=== PATIENT | male | born 1995 | race Caucasian/White ===

== ENCOUNTER 2019-12-08 19:59 | Emergency (ER) | payer BC ==
[~2019-12-08] VITALS: Ht 193 cm; Wt 102.1 kg
--- NOTE | ~2019-12-08 | EKG ---
[facility] [address] [place] [address] ELECTROCARDIOGRAM REPORT Name: ADRIANA NOLASCO Room #: [facility].#: [id number] Admission: Attend Phys: Discharge: Date of : 89 Report #: [id number] THIS REPORT FOR: cc: Neal De Jesus MD ~ THIS REPORT FOR: //name// [facility] ED Test Date: 2019-12-08 Test Time: 20:36:06 Pat Name: ADRIANA NOLASCO Department: Room: Gender: M [employer]: jenae martinez : 1995 Requested By: Zurdo Rey Order Number: [id number] MD: Measurements Intervals Guin Rate: 64 P: 45 MI: 162 QRS: 64 QRSD: 100 T: 17 QT: 363 QTc: 375 Interpretive Statements Sinus rhythm Supraventricular bigeminy Sinus pause No previous ECG available for comparison [email or web address] By: 35 35 Neal De Jesus MD /EPI
[2019-12-08] MEDS ORDERED: XANAX 0.5 MG0.5 MG PO (21:29)
[2019-12-08] MEDS ORDERED: ADDERALL 10 MG10 MG PO (21:29)
[2019-12-08] MEDS ORDERED: PROMETH-CODEIN 65 ML PO (22:31)
[2019-12-08] MEDS ORDERED: TAMIFLU75 MG PO (22:31)
[2019-12-08 22:43] VITALS: BP 105/57
== END 2019-12-08 22:41 | disposition home or self-care (01) ==
LOC: ER 19:59
DX: J02.9 Acute pharyngitis, unspecified (principal); R05 Cough; R50.9 Fever, unspecified; F90.9 Attention-deficit hyperactivity disorder, unspecified type; F41.9 Anxiety disorder, unspecified